=== PATIENT | female | born 1995 | race Caucasian/White ===

== ENCOUNTER 2018-04-10 11:23 | Outpatient (CLI) | payer MEDICAID ==
[2018-04-10 12:36] LABS: ADD MAN DIFF? NO
[2018-04-10 12:42] LABS: BASOPHIL # 0.1 10^3/ul (0.0-0.1); BASOPHILS % 0.4 % (0.0-2.0); EOSINOPHILS # 0.1 10^3/ul (0.0-0.5); EOSINOPHILS % 0.8 % (0.0-7.0); HEMATOCRIT 30.7 % (37.0-47.0); HEMOGLOBIN 9.9 g/dl (12.0-16.0); LYMPHOCYTES # 1.4 10^3/ul (0.8-2.9); LYMPHOCYTES % 10.8 % (15.0-51.0); MEAN CORPUSCULAR HGB CONC 32.2 g/dl (32.0-37.0); MEAN CORPUSCULAR VOLUME 83.7 fl (82.0-101.0); MEAN PLATELET VOLUME 10.7 fl (7.4-10.4); MONOCYTE # 1.1 10^3/ul (0.3-0.9); MONOCYTES % 7.9 % (0.0-11.0); NEUTROPHIL # 10.3 10^3/ul (1.6-7.5); NEUTROPHILS % 76.7 % (39.0-77.0); PLATELET COUNT 200 10^3/UL (140-415); RED BLOOD COUNT 3.67 10^6/ul (4.20-5.40); RED CELL DISTRIBUTION WIDTH 14.6 % (11.5-14.5)
[2018-04-10 12:42] LABS: WHITE BLOOD COUNT 13.4 10^3/ul (4.8-10.8)
[2018-04-10 13:47] LABS: HEPATITIS B SURFACE ANTIGEN NEGATIVE (NEGATIVE)
[2018-04-10 14:01] LABS: HIV 1&2 ANTIBODY NEGATIVE (NEGATIVE)
[2018-04-10 14:03] LABS: URINE BLOOD (Dip) POC Negative (NEGATIVE); URINE GLUCOSE (Dip) POC Negative (NEGATIVE); URINE KETONES (Dip) POC Negative (NEGATIVE); URINE LEUKOCYTE EST (Dip) POC Negative (NEGATIVE); URINE NITRITE (Dip) POC Negative (NEGATIVE); URINE TOTAL PROTEIN POC Negative (NEGATIVE)
[2018-04-10 14:58] LABS: RAPID PLASMA REAGIN NONREACTIVE (NR)
[2018-04-13 11:22] LABS: RUBELLA ANTIBODY - IGG 9.98 index; RUBELLA ANTIBODY - IGM <20.00 AU/mL
== END 2018-04-10 14:10 | disposition home or self-care (01) ==
LOC: OBT 11:23 → L-D 11:24 → OBT 14:10
DX: O62.9 Abnormality of forces of labor, unspecified (principal); O09.33 Supervision of pregnancy with insufficient antenatal care, third trimester; Z3A.37 37 weeks gestation of pregnancy
CPT/HCPCS: 76815; 76818; 81003; 85025; 86592; 86703; 86762; 86900; 86901; 87340

== ENCOUNTER 2018-04-16 00:05 | Inpatient (IN) | payer MEDICAID ==
[2018-04-16] MEDS ORDERED: LIDOCAINE 1% (MPF) 30 ML INJ (00:39)
[2018-04-16] MEDS ORDERED: AMPICILLIN 2 GM/NS (PMX) 100 ML (00:43)
[2018-04-16] MEDS: AMPICILLIN 2 GM/NS (PMX) 100 ML IV (00:51)
[2018-04-16] MEDS: LACTATED RINGER'S 1,000 ML IV* ×2 (00:51→06:39)
[2018-04-16] MEDS ORDERED: OXYTOCIN 30 UNITS/LR 500 ML IV ×5 (01:00→04:00)
[2018-04-16] MEDS ORDERED: BUTORPHANOL 2 MG INJ IV (01:00)
[2018-04-16] MEDS ORDERED: IBUPROFEN 600 MG TAB PO (01:00)
[2018-04-16] MEDS ORDERED: METHYLERGONOVINE 0.2 MG INJ IM ×3 (01:00→04:00)
[2018-04-16] MEDS ORDERED: CARBOPROST 250 MCG INJ IM ×3 (01:00→04:00)
[2018-04-16] MEDS ORDERED: ACETAMINOPHEN/CODEINE #3 TAB PO (01:00)
[2018-04-16] MEDS ORDERED: MISOPROSTOL 200 MCG TAB PR ×3 (01:00→04:00)
[2018-04-16] MEDS ORDERED: BUTORPHANOL 1 MG INJ IV (01:00)
[2018-04-16] MEDS ORDERED: LIDOCAINE 1% (MPF) 30 ML INJ INJ ×2 (01:00)
[2018-04-16 01:25] LABS: INR 1.04; PROTIME 13.7 Sec (11.9-14.9); PT RATIO 1.1
[2018-04-16 01:26] LABS: PARTIAL THROMBOPLASTIN TIME 29.3 Sec (25.0-35.0)
[2018-04-16 01:29] LABS: ALANINE AMINOTRANSFERASE 29 IU/L (13-69); ALBUMIN 3.9 g/dl (3.3-4.9); ALBUMIN/GLOBULIN RATIO 1.21; ALKALINE PHOSPHATASE 178 IU/L (42-121); ANION GAP 16 (8-16); ASPARTATE AMINO TRANSFERASE 23 IU/L (15-46); BILIRUBIN,INDIRECT 0.3 mg/dl (0-1.1); BILIRUBIN,TOTAL 0.3 mg/dl (0.2-1.3); BLOOD UREA NITROGEN 11 mg/dl (7-20); CALCIUM 9.1 mg/dl (8.4-10.2); CARBON DIOXIDE 26 mmol/L (21-31); CHLORIDE 101 mmol/L (97-110); CREATININE 0.47 mg/dl (0.44-1.00); GLUCOSE 100 mg/dl (70-220); POTASSIUM 3.9 mmol/L (3.5-5.1); SODIUM 139 mmol/L (135-144); TOTAL PROTEIN 7.1 g/dl (6.1-8.1)
[2018-04-16] MEDS: MINERAL OIL LIGHT 10 ML VIAL TOP (01:56)
[2018-04-16] MEDS: OXYTOCIN 30 UNITS/LR 500 ML IV ×2 (02:06→02:32)
[2018-04-16] MEDS ORDERED: OXYCODONE/ASPIRIN (4.88/325) TAB PO ×2 (04:00)
[2018-04-16] MEDS ORDERED: WITCH HAZEL/GLYCERIN PAD PR (04:00)
[2018-04-16] MEDS ORDERED: ZOLPIDEM 5 MG TAB PO (04:00)
[2018-04-16] MEDS ORDERED: BENZOCAINE 20% 56 ML SPRAY TOP (04:00)
[2018-04-16] MEDS ORDERED: AMPICILLIN 1 GM/NS (PMX) 50 ML IV (05:00)
[2018-04-16] MEDS: IBUPROFEN 600 MG TAB PO ×3 (05:33→18:16)
[2018-04-16] MEDS ORDERED: CEFAZOLIN 1 GM/50 ML (PMX) 50 ML IV (06:00)
[2018-04-16] MEDS: SENNA/DOCUSATE NA (8.6MG/50MG) TAB PO ×2 (11:08→22:48)
[2018-04-16] MEDS: LANOLIN 7 GM TUBE TOP (18:49)
[2018-04-17] MEDS: IBUPROFEN 600 MG TAB PO ×5 (00:46→23:35)
[2018-04-17 09:38] LABS: ADD MAN DIFF? NO
[2018-04-17] MEDS: SENNA/DOCUSATE NA (8.6MG/50MG) TAB PO ×2 (09:38→21:24)
[2018-04-17 09:43] LABS: WHITE BLOOD COUNT 9.8 10^3/ul (4.8-10.8)
[2018-04-17 09:43] LABS: BASOPHIL # 0.1 10^3/ul (0.0-0.1); BASOPHILS % 0.6 % (0.0-2.0); EOSINOPHILS # 0.2 10^3/ul (0.0-0.5); EOSINOPHILS % 1.8 % (0.0-7.0); HEMATOCRIT 28.7 % (37.0-47.0); HEMOGLOBIN 9.3 g/dl (12.0-16.0); LYMPHOCYTES # 1.8 10^3/ul (0.8-2.9); LYMPHOCYTES % 18.6 % (15.0-51.0); MEAN CORPUSCULAR HEMOGLOBIN 27.3 pg (29.0-33.0); MEAN CORPUSCULAR HGB CONC 32.4 g/dl (32.0-37.0); MEAN CORPUSCULAR VOLUME 84.2 fl (82.0-101.0); MONOCYTE # 0.9 10^3/ul (0.3-0.9); MONOCYTES % 8.9 % (0.0-11.0); NEUTROPHIL # 6.7 10^3/ul (1.6-7.5); NEUTROPHILS % 68.3 % (39.0-77.0); PLATELET COUNT 175 10^3/UL (140-415); RED BLOOD COUNT 3.41 10^6/ul (4.20-5.40)
[2018-04-17 10:36] LABS: HEPATITIS B SURFACE ANTIGEN NEGATIVE (NEGATIVE)
[2018-04-18] MEDS: IBUPROFEN 600 MG TAB PO ×2 (05:30→11:53)
[2018-04-18] MEDS: DIPHTH/TET/ACEL PERTUSS (ADULT) 0.5 ML VIAL IM* (09:00)
[2018-04-18] MEDS: SENNA/DOCUSATE NA (8.6MG/50MG) TAB PO (09:36)
[2018-04-18 21:43] LABS: RAPID PLASMA REAGIN NONREACTIVE (NR)
== END 2018-04-18 15:45 | disposition home or self-care (01) | DRG 775 ==
LOC: OBT 00:05 → L-D 00:05 → OBT 00:22 → L-D 00:22 → PP1 04:05
PROC: 10E0XZZ Delivery of Products of Conception, External Approach (ICD-10-PCS; principal; 2018-04-16)
PROC: 3E033VJ Introduction of Other Hormone into Peripheral Vein, Percutaneous Approach (ICD-10-PCS; 2018-04-16)
DX: O48.0 Post-term pregnancy (principal); Z3A.41 41 weeks gestation of pregnancy; Z37.0 Single live birth
CPT/HCPCS: 80053; 85025; 85610; 85730; 86592; 86850; 86900; 86901; 87340